=== PATIENT | male | born 1950 | race Caucasian/White ===

== ENCOUNTER 2018-03-11 15:41 | Inpatient (IN) | payer MEDICARE, MEDICAID ==
--- NOTE | 2018-03-11 15:56 | ED Physician Chart ---
ED Chief Complaint/HPI - Patient Information Date Seen:: 03/11/18 Time Seen:: 15:45 Chief Complaint:: hematemesis History of Present Illness:: Patient reportedly vomited coffee-ground material this morning. Patient would not or could not provide the color or the amount of the material he vomited but he stated it tasted like feces. Patient denies abdominal pain. Allergies:: Allergies Allergy/AdvReac Type Severity Reaction Status Date / Time MDX No Known Allergies - Nka Allergy Verified 03/03/12 17:14 [No Known Allergies - Nka] Historian:: Patient, EMS Review:: Transfer documents Reviewed ED Review of Systems - Review of Systems General/Constitutional: No fever, No chills Skin: No skin lesions Head: No headache Eyes: No loss of vision ENT: No earache Neck: No neck pain Cardio Vascular: No chest pain, No palpitations Pulmonary: No SOB GI: Vomiting, Hematemesis G/U: No dysuria, No hematuria Musculoskeletal: No bone or joint pain, No back pain, No muscle pain Hematopoietic: No bruising Allergic/Immuno: No urticaria Neurological: No syncope, Focal symptoms ED Past Medical History - Past Medical History Past Medical History: DM, CVA/TIA, Dyslipidemia, Arthritis, Other (hemiplegia with left-sided paralysis; atrial fibrillation; dysphagia; hyperlipidemia; gastritis) Family History: Other (unavailable) Social History: Care Facility Surgical History: PEG/GTube Psychiatricy History: None Medication: Reviewed Family Medical History - Family Member Mother History Unknown: Yes ED Physical Exam - Physical Examination Other Gen/Cons comments:: Chronically ill-appearing; intermittently resists physical exam Head: Atraumatic Eyes: Lids, conjuctiva normal, PERRL Skin: Nl inspection, No rash, No skin lesions, No ecchymosis ENMT: External ears, nose nl, TM canals nl Other ENMT comments:: 3.5 out of 4 poor dental hygiene Neck: No JVD Respiratory: Nl effort/Exclusion, Clear to Auscultation Other Cardio Vascular comments:: Heart sounds faint; pulse is regular GI: No tenderness/rebounding/guarding, No organomegaly, No hernia, Normal BS's, Nondistended Other Extremities comments:: Paralysis left arm Other Neuro/Psych comments:: Paralysis of left arm and 2 out of 4 drooping left side of mouth Misc: No paraspinal tenderness ED Labs/Radiology/EKG Results - Lab Results Results: Abnormal Lab Results 03/11/18 03/11/18 03/11/18 17:55 17:55 17:55 WBC 21.1 H* D RBC 4.38 Hgb 14.3 Hct 41.5 MCV 94.8 MCH 32.6 H MCHC Differential 34.4 RDW 13.6 Plt Count 365 MPV 7.8 Add Manual Diff YES Band Neutrophils % 0 Neutrophils (Manual) 77 Lymphocytes 19 L Monocytes 4 Eosinophils 0 Basophils 0 Platelet Estimate ADEQUATE Platelet Morphology NORMAL Anisocytosis 1+ RBC Morph Micro Appear NORMAL PT 11.3 INR 1.09 PTT (Actin FS) 30.6 Sodium 132 L Potassium 5.8 H Chloride 97 L Carbon Dioxide 25.7 Anion Gap 15.1 BUN 61 H Creatinine 2.1 H Est GFR ( Amer) 40.6 Est GFR (Non-Af Amer) 33.5 BUN/Creatinine Ratio 29.0 Glucose 105 Whole Bld Lactic Acid Calcium 10.0 03/11/18 17:55 WBC RBC Hgb Hct MCV MCH MCHC Differential RDW Plt Count MPV Add Manual Diff Band Neutrophils % Neutrophils (Manual) Lymphocytes Monocytes Eosinophils Basophils Platelet Estimate Platelet Morphology Anisocytosis RBC Morph Micro Appear PT INR PTT (Actin FS) Sodium Potassium Chloride Carbon Dioxide Anion Gap BUN Creatinine Est GFR ( Amer) Est GFR (Non-Af Amer) BUN/Creatinine Ratio Glucose Whole Bld Lactic Acid 2.10 H* Calcium - Radiology Results Results: Chest x-ray showed no acute disease - EKG Interpretations Rate & Rhythm: normal sinus rhythm with a rate of 64 Erin: normal Comments:: Anterior T-wave changes ED Assessment - Assessment General Assessment: The reason for the patient's leukocytosis may be stress related to his dehydration; patient is uncooperative to provide a urine for urinalysis ED Septic Shock - . Is Septic Shock (SBP<90, OR Lactate>4 mmol\L) present?: No ED Reassessment (Disposition) - Reassessment Reassessment Condition:: Unchanged - Diagnosis Diagnosis:: Leukocytosis; hyperkalemia; dehydration - Patient Disposition Admitted to:: Telemetry Spoke to:: Demond Auguste Admitting Medical Physician:: Demond Auguste Condition at Disposition:: Stable, Improved
[2018-03-11] MEDS ORDERED: Haloperidol Lactate 5 mg/mL 1mL Vial ONE (17:12)
[2018-03-11] MEDS ORDERED: Haloperidol Lactate 5 mg/mL 1mL Vial IVP ONE (17:31)
[2018-03-11] MEDS ORDERED: Sodium Chloride 0.9% 1,000 ML IV ONE ×2 (17:54→19:59)
[2018-03-11 18:04] LABS: BASOPHILE ABSOLUTE 0.1 Th/cumm (0-0.2); HEMATOCRIT 41.5 % (41.0-60); HEMOGLOBIN 14.3 gm/dL (12-16); LYMPHOCYTE ABSOLUTE 3.2 Th/cmm (1.5-3.0); MEAN CELL VOLUME 94.8 fl (80-99); MEAN CORPUSCULAR HEMOGLOBIN 32.6 pg (27.0-31.0); MEAN CORPUSCULAR HGB CONC 34.4 pg (28.0-36.0); MEAN PLATELET VOLUME 7.8 fl; MONOCYTE ABSOLUTE 2.2 Th/cmm (0.3-1.0); NEUTROPHILE ABSOLUTE 15.6 Th/cmm (1.8-8.0); PLATELET COUNT 365 Th/cmm (150-400); RED BLOOD COUNT 4.38 Mil/cmm (3.80-5.80); RED CELL DISTRIBUTION WIDTH 13.6 % (11.5-20.0)
[2018-03-11 18:10] LABS: WHITE BLOOD COUNT 21.1 Th/cmm (4.8-10.8)
[2018-03-11 18:14] LABS: INR 1.09 (0.5-1.4); PROTHROMBIN TIME (TEST) 11.3 SECONDS (9.5-11.5)
[2018-03-11 18:17] LABS: ANION GAP 15.1 (7.0-16.0); CARBON DIOXIDE 25.7 mEq/L (21.0-31.0); CREATININE - SERUM 2.1 mg/dL (0.7-1.3); GFR AFRICAN-AMERICAN 40.6 ml/min (>90); GFR NON AFRICAN-AMERICAN 33.5 ml/min; POTASSIUM SERUM 5.8 mEq/L (3.5-5.1)
[2018-03-11 18:36] LABS: NEUTROPHILS 77 % (40-80)
[2018-03-11 18:37] LABS: ANISOCYTOSIS 1+; BAND NEUTROPHILE 0 % (0-10); BASOPHIL 0 % (0-3); EOSINOPHIL 0 % (0-5); LYMPHOCYTE 19 % (20-50); MONOCYTE 4 % (2-10); PLATELET ESTIMATE ADEQUATE (NORMAL); PLATELET MORPHOLOGY NORMAL (NORMAL)
[2018-03-11] MEDS ORDERED: Hydrocodone/APAP 10 mg/325 mg Tab GT PRN (19:04)
[2018-03-11] MEDS ORDERED: POLYETHYLENE GLYCOL 3350 17 GM PACK PO PRN (19:04)
[2018-03-11 21:49] VITALS: BP 97/45
[2018-03-11] MEDS: D5-0.9%NS 1,000 ML IV SCH (22:09)
[2018-03-11] MEDS: INSULIN ASPART, RECOMBINANT 100 UNITS/ML SUBQ SCH (22:17)
[2018-03-11] MEDS ORDERED: Piperacillin Sodium/Tazobact 3.375 gm Vial IV ONE (22:20)
[2018-03-12] MEDS ORDERED: Piperacillin Sodium/Tazobact 3.375 gm Vial IV ONE (04:37)
[2018-03-12] MEDS: Albuterol Nebulizer 2.5mg/3mL HHN SCH ×4 (06:46→18:41)
[2018-03-12] MEDS: Ipratropium Neb 0.5 mg/2.5 mL UD HHN SCH ×4 (06:46→18:41)
[2018-03-12] MEDS: INSULIN ASPART, RECOMBINANT 100 UNITS/ML SUBQ SCH ×4 (06:57→20:35)
--- NOTE | 2018-03-12 08:18 | Diagnostic Imaging Report ---
Portable chest x-ray HISTORY: Shortness of breath Heart size difficult to assess with portable technique and a poor inspiration. Atherosclerotic calcification seen in the aorta. No acute focal pulmonary processes. IMPRESSION: 1. No acute focal pulmonary processes 2. Atherosclerotic vascular changes
[2018-03-12] MEDS ORDERED: Pantoprazole 40 mg EC Tab PO SCH (09:00)
[2018-03-12] MEDS ORDERED: Influenza Vaccine (65 yr & older) 0.5 ml Syr IM ONE (10:00)
[2018-03-12] MEDS ORDERED: Pneumococcal Vaccine 0.5 mL Vial IM ONE (10:00)
[2018-03-12] MEDS ORDERED: VTE Chemical Prophylaxis Screen/Admission MC PRN (10:18)
[2018-03-12] MEDS ORDERED: Probiotic Screen MC PRN (11:41)
--- NOTE | 2018-03-12 12:08 | Internal Medicine Prog Note ---
Internal Medicine Subjective - Subjective Service Date: 03/12/18 ([id number] hn) Internal Medicine Objective - Results Result Diagrams: 03/11/18 17:55 03/11/18 17:55 Recent Labs: Laboratory Last Values WBC 21.1 Th/cmm (4.8-10.8) H* D 03/11/18 17:55 RBC 4.38 Mil/cmm (3.80-5.80) 03/11/18 17:55 Hgb 14.3 gm/dL (12-16) 03/11/18 17:55 Hct 41.5 % (41.0-60) 03/11/18 17:55 MCV 94.8 fl (80-99) 03/11/18 17:55 MCH 32.6 pg (27.0-31.0) H 03/11/18 17:55 MCHC Differential 34.4 pg (28.0-36.0) 03/11/18 17:55 RDW 13.6 % (11.5-20.0) 03/11/18 17:55 Plt Count 365 Th/cmm (150-400) 03/11/18 17:55 MPV 7.8 fl 03/11/18 17:55 Add Manual Diff YES 03/11/18 17:55 Band Neutrophils % 0 % (0-10) 03/11/18 17:55 Neutrophils (Manual) 77 % (40-80) 03/11/18 17:55 Lymphocytes 19 % (20-50) L 03/11/18 17:55 Monocytes 4 % (2-10) 03/11/18 17:55 Eosinophils 0 % (0-5) 03/11/18 17:55 Basophils 0 % (0-3) 03/11/18 17:55 Platelet Estimate ADEQUATE (NORMAL) 03/11/18 17:55 Platelet Morphology NORMAL (NORMAL) 03/11/18 17:55 Anisocytosis 1+ 03/11/18 17:55 RBC Morph Micro Appear NORMAL (NORMAL) 03/11/18 17:55 PT 11.3 SECONDS (9.5-11.5) 03/11/18 17:55 INR 1.09 (0.5-1.4) 03/11/18 17:55 PTT (Actin FS) 30.6 SECONDS (26.0-38.0) 03/11/18 17:55 Sodium 132 mEq/L (136-145) L 03/11/18 17:55 Potassium 5.8 mEq/L (3.5-5.1) H 03/11/18 17:55 Chloride 97 mEq/L (98-107) L 03/11/18 17:55 Carbon Dioxide 25.7 mEq/L (21.0-31.0) 03/11/18 17:55 Anion Gap 15.1 (7.0-16.0) 03/11/18 17:55 BUN 61 mg/dL (7-25) H 03/11/18 17:55 Creatinine 2.1 mg/dL (0.7-1.3) H 03/11/18 17:55 Est GFR ( Amer) 40.6 ml/min (>90) 03/11/18 17:55 Est GFR (Non-Af Amer) 33.5 ml/min 03/11/18 17:55 BUN/Creatinine Ratio 29.0 03/11/18 17:55 Glucose 105 mg/dL (70-105) 03/11/18 17:55 POC Glucose 103 MG/DL (70 - 105) 03/12/18 06:47 Whole Bld Lactic Acid 0.83 mmol/L (0.60-1.99) 03/11/18 21:30 Calcium 10.0 mg/dL (8.6-10.3) 03/11/18 17:55 - Physical Exam Vitals and I&O: Vital Signs Temp 97.6 F 03/12/18 11:02 Pulse 71 03/12/18 11:02 Resp 18 03/12/18 11:02 BP 120/76 03/12/18 11:02 Pulse Ox 98 03/12/18 11:02 Intake & Output 03/11/18 03/12/18 03/12/18 18:59 06:59 18:59 Intake Total 2150 Balance 2150 Weight (lbs) 220 lb 168 lb 9 oz Intake: Intake, IV Amount 2150 D5-0.9%Ns 1,000 ml @ 100 1000 mls/hr IV .Q10H [facility] Rx#: [id number] Piperacillin Sodium/ 150 Tazobact 3.375 gm In Sodium Chloride 0.9% 50 ml @ 100 mls/hr IV Q8HR [facility] Rx#:[id number] Sodium Chloride 0.9% 1, 1000 000 ml @ Wide Open IV . Q0M ONE Rx#:[id number] Other: # Voids 2 # Bowel Movements 2 Stool Characteristics Soft Soft Formed Formed Weight Source Estimated Bedscale Active Medications: Current Medications Acetaminophen (Tylenol) 650 mg PO Q4H PRN PRN Reason: Mild Pain Or Fever above 101 Stop: 05/10/18 19:05 Acetaminophen/Hydrocodone Bitart ([place] 10 Mg/325 Mg) 1 tab GT Q6H PRN PRN Reason: Moderate to Severe Pain Stop: 05/10/18 19:03 Albuterol Sulfate (Albuterol 2.5mg/3ml Neb Ud) 2.5 mg HHN QIDRT [facility] Stop: 05/11/18 06:59 Last Admin: 03/12/18 10:46 Dose: 2.5 mg Ascorbic Acid (Vitamin C) 500 mg GT DAILY [facility] Stop: 05/11/18 08:59 Last Admin: 03/12/18 09:34 Dose: Not Given Calamine/Phenol (Calmoseptine) 1 appl TP QSHIFT [facility] Stop: 05/10/18 19:59 Dextrose/Sodium Chloride (D5-0.9%Ns) 1,000 mls @ 100 mls/hr IV .Q10H [facility] Stop: 05/10/18 19:14 Last Admin: 03/11/18 22:09 Dose: 100 mls/hr Piperacillin Sod/Tazobactam (Sod 3.375 gm/ Sodium Chloride) 50 mls @ 100 mls/ hr IV Q8HR [facility] Stop: 05/10/18 21:59 Last Admin: 03/12/18 04:51 Dose: 100 mls/hr Insulin Aspart (Novolog) 0 units SUBQ ACHS [facility]; Protocol Stop: 05/10/18 20:59 Last Admin: 03/12/18 11:54 Dose: Not Given Ipratropium [place] (Atrovent Neb 0.5mg/2.5ml) 0.5 mg HHN QIDRT [facility] Stop: 05/11/18 06:59 Last Admin: 03/12/18 10:46 Dose: 0.5 mg Lactobacillus Rhamnosus (Culturelle 15b) 1 each PO DAILY [facility] Stop: 05/12/18 08:59 Memantine (Namenda) 5 mg GT BID [facility] Stop: 05/11/18 08:59 Last Admin: 03/12/18 09:34 Dose: Not Given Miscellaneous (Vte Chemical Prophylaxis Screen/ Admission) 1 ea MC PRN PRN PRN Reason: PROTOCOL Stop: 05/11/18 10:17 Miscellaneous (Probiotic Screen) 1 ea MC PRN PRN PRN Reason: PROTOCOL Stop: 05/11/18 11:40 Ondansetron HCl (Zofran) 4 mg IV Q8H PRN PRN Reason: Nausea / Vomiting Stop: 05/10/18 19:05 Pantoprazole Sodium (Protonix) 40 mg PO BID [facility] Stop: 05/11/18 08:59 Last Admin: 03/12/18 09:34 Dose: Not Given Polyethylene Glycol (Miralax) 17 gm PO DAILY PRN PRN Reason: Constipation Stop: 05/10/18 19:03 - Procedures Procedures: Procedures Procedure Code Date EGD BIOPSY SINGLE/MULTIPLE 69513 12/27/[address] GASTROSTOMY TUBE 49395 01/20/14 EGD REMOVE FOREIGN BODY 18058 01/20/14 ESOPHAGOGASTRODUODENOSCOPY [EGD] W/CLOSED BIOPSY 45.16 12/27/12 PERCUTANEOUS [ENDOSCOPIC] GASTROSTOMY [PEG] 43.11 01/20/14 REMOV INTRALUM GASTR FB 98.03 01/20/14
[2018-03-12 15:54] LABS: ANION GAP 17.3 (7.0-16.0); BUN - UREA NITROGEN 39 mg/dL (7-25); CALCIUM SERUM 9.1 mg/dL (8.6-10.3); CARBON DIOXIDE 15.5 mEq/L (21.0-31.0); CHLORIDE 107 mEq/L (98-107); CREATININE - SERUM 1.1 mg/dL (0.7-1.3); GFR AFRICAN-AMERICAN > 60.0 ml/min (>90); GFR NON AFRICAN-AMERICAN > 60.0 ml/min; GLUCOSE 157 mg/dL (70-105); POTASSIUM SERUM 4.8 mEq/L (3.5-5.1); SODIUM SERUM 135 mEq/L (136-145)
--- NOTE | 2018-03-12 16:49 | Consultation ---
DATE OF CONSULTATION: 03/12/2018 REQUESTING PHYSICIAN: Dr. Auguste. REASON FOR CONSULTATION: Concern for GI bleed. Thank you for asking me to see this patient in consultation. HISTORY OF PRESENT ILLNESS: This is a 67-year-old male with psychiatric comorbidity, who presents with reported coffee-ground material earlier yesterday. The patient states that he could not provide the color of the amount of the material, but stated that it tasted like feces. The patient has apparently a G-tube from previous hospitalizations. The patient was not able to provide history on this. His hemoglobin has been stable. REVIEW OF SYSTEMS: Unable to provide given the current patient's state and agitation. PAST MEDICAL HISTORY: Diabetes, CVA, dyslipidemia, hemiplegia, and left-sided paralysis. FAMILY HISTORY: Noncontributory. SOCIAL HISTORY: He lives in a care facility. He has a history of G-tube placement. No tobacco, no alcohol, no drugs. MEDICATIONS: Have been reviewed. PHYSICAL EXAMINATION: VITAL SIGNS: Noted. GENERAL: He is speaking and somewhat somnolent, in no apparent distress. HEENT: Normocephalic, atraumatic. PERRLA, positive. LUNGS: Clear bilaterally. No wheezes, rales, or rhonchi. ABDOMEN: Soft, nontender, bowel sounds are positive. EXTREMITIES: Show no lower extremity edema. PSYCHOLOGIC: Alert and oriented x 2. NEUROLOGIC: Unable to assess. LABORATORY DATA: White count of 21,000, hemoglobin of 14.3, INR of 1.09. Sodium 132, potassium 5.8, lactic acid of 2.1. ASSESSMENT AND PLAN: This is a 67-year-old male with history of G-tube and history of cerebrovascular accident in the past, who presents with one episode of coffee-ground emesis. 1. Hematemesis. 2. Concern for upper gastrointestinal bleed. 3. Probable erosive esophagitis versus peptic ulcer disease. We would recommend conservative treatment for now. Aspirate off the G-tube to see if there is any evidence of ongoing blood. Start him on IV PPI twice a day and okay to start G-tube feedings for now given stability and hemodynamic stability. If patient has recurrent bouts of hematemesis or hemodynamic instability associated with a GI bleed, we would recommend an urgent EGD. We will continue to follow the patient alongside with you. Thank you for this consultation. JOB# [id number]
[2018-03-12] MEDS: Menthol/Zinc Oxide Oint 113gm Tube TP SCH ×2 (17:38→20:34)
--- NOTE | 2018-03-12 19:42 | History & Physical ---
ADMIT DATE: 03/12/2018 CHIEF COMPLAINT: Coffee-ground emesis. HISTORY OF PRESENT ILLNESS: This is a 67-year-old male who is a longterm resident, admitted to the telemetry unit due to 1-day history of coffee-ground emesis. The patient was also noted with abdominal distention at the longterm. The patient also stated that his vomit tasted like feces. The patient did not have any fevers at the longterm. PAST MEDICAL HISTORY: Diabetes, CVA, dyslipidemia, arthritis, hemiplegia with left-sided weakness, AFib, dysphagia, hyperlipidemia, and gastritis. FAMILY HISTORY: Noncontributory. SOCIAL HISTORY: The patient is a longterm resident, requiring 24-hour nursing care. PAST SURGICAL HISTORY: PEG. FAMILY HISTORY: Noncontributory. REVIEW OF SYSTEMS: GENERAL: Denies any fevers and chills. CARDIOVASCULAR: Denies chest pain. RESPIRATORY: Denies shortness of breath. GASTROINTESTINAL: Denies any nausea, vomiting, or any abdominal pain at this time. GENITOURINARY: Denies any dysuria. All other systems are reviewed and negative. PHYSICAL EXAMINATION: GENERAL: Elderly male. Awake, alert, agitated. No apparent distress. VITAL SIGNS: Temperature 97.6, heart rate 71, blood pressure 120/76, respiration 18, O2 98%. HEENT: Head; normocephalic, atraumatic. NECK: Supple. No mass. LUNGS: Clear bilaterally. HEART: Regular rhythm. No murmurs, no gallops. ABDOMEN: Mildly distended. EXTREMITIES: No trace of edema noted. SKIN: The patient has DTI at sacral area. LABORATORY DATA: WBC 21.1, H and H 14.3 and 41.5, platelet of 365. Sodium 132, potassium 5.8, chloride 97, BUN 61, creatinine 2.1. Whole lactic acid 2.10. DIAGNOSTICS: The patient had a chest x-ray done, impression is no acute focal pulmonary processes, atherosclerotic vascular changes. ASSESSMENT: Gastrointestinal bleed, lactic acidosis, rule out sepsis, acute renal insufficiency secondary to severe dehydration, diabetes, 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 PLAN: The patient will be admitted to the telemetry unit. We will get psychiatry consultation as well as GI, also get wound care consultation. Keep the patient on aggressive IV fluids for hydration. Monitor BUN and creatinine closely. Keep patient on empiric IV antibiotics, monitor H and H, IV Protonix to continue, followup labs for tomorrow morning. We will continue to monitor this patient. JOB# [id number]
[2018-03-12] MEDS: D5-0.9%NS 1,000 ML IV SCH (20:38)
[2018-03-13] MEDS: Albuterol Nebulizer 2.5mg/3mL HHN SCH ×4 (07:21→19:29)
[2018-03-13] MEDS: Ipratropium Neb 0.5 mg/2.5 mL UD HHN SCH ×3 (07:21→15:50)
[2018-03-13] MEDS: INSULIN ASPART, RECOMBINANT 100 UNITS/ML SUBQ SCH ×4 (07:34→21:18)
[2018-03-13] MEDS: D5-0.9%NS 1,000 ML IV SCH ×2 (07:47→20:34)
[2018-03-13] MEDS: Lactobacillus Rhamnosus GG 15 Billion CFU CAP.SPRINK PO SCH (08:25)
[2018-03-13] MEDS: Menthol/Zinc Oxide Oint 113gm Tube TP SCH ×3 (08:40→21:21)
--- NOTE | 2018-03-13 12:35 | Internal Medicine Prog Note ---
Internal Medicine Subjective - Subjective Service Date: 03/13/18 Patient seen and examined:: with staff Patient is:: awake, verbal Per staff patient has:: tolerating meds Internal Medicine Objective - Results Result Diagrams: 03/11/18 17:55 03/12/18 13:10 Recent Labs: Laboratory Last Values WBC 21.1 Th/cmm (4.8-10.8) H* D 03/11/18 17:55 RBC 4.38 Mil/cmm (3.80-5.80) 03/11/18 17:55 Hgb 14.3 gm/dL (12-16) 03/11/18 17:55 Hct 41.5 % (41.0-60) 03/11/18 17:55 MCV 94.8 fl (80-99) 03/11/18 17:55 MCH 32.6 pg (27.0-31.0) H 03/11/18 17:55 MCHC Differential 34.4 pg (28.0-36.0) 03/11/18 17:55 RDW 13.6 % (11.5-20.0) 03/11/18 17:55 Plt Count 365 Th/cmm (150-400) 03/11/18 17:55 MPV 7.8 fl 03/11/18 17:55 Add Manual Diff YES 03/11/18 17:55 Band Neutrophils % 0 % (0-10) 03/11/18 17:55 Neutrophils (Manual) 77 % (40-80) 03/11/18 17:55 Lymphocytes 19 % (20-50) L 03/11/18 17:55 Monocytes 4 % (2-10) 03/11/18 17:55 Eosinophils 0 % (0-5) 03/11/18 17:55 Basophils 0 % (0-3) 03/11/18 17:55 Platelet Estimate ADEQUATE (NORMAL) 03/11/18 17:55 Platelet Morphology NORMAL (NORMAL) 03/11/18 17:55 Anisocytosis 1+ 03/11/18 17:55 RBC Morph Micro Appear NORMAL (NORMAL) 03/11/18 17:55 PT 11.3 SECONDS (9.5-11.5) 03/11/18 17:55 INR 1.09 (0.5-1.4) 03/11/18 17:55 PTT (Actin FS) 30.6 SECONDS (26.0-38.0) 03/11/18 17:55 Sodium 135 mEq/L (136-145) L 03/12/18 13:10 Potassium 4.8 mEq/L (3.5-5.1) 03/12/18 13:10 Chloride 107 mEq/L (98-107) 03/12/18 13:10 Carbon Dioxide 15.5 mEq/L (21.0-31.0) L 03/12/18 13:10 Anion Gap 17.3 (7.0-16.0) H 03/12/18 13:10 BUN 39 mg/dL (7-25) H 03/12/18 13:10 Creatinine 1.1 mg/dL (0.7-1.3) 03/12/18 13:10 Est GFR ( Amer) > 60.0 ml/min (>90) 03/12/18 13:10 Est GFR (Non-Af Amer) > 60.0 ml/min 03/12/18 13:10 BUN/Creatinine Ratio 35.5 03/12/18 13:10 Glucose 157 mg/dL (70-105) H 03/12/18 13:10 POC Glucose 147 MG/DL (70 - 105) H 03/13/18 12:24 Whole Bld Lactic Acid 0.83 mmol/L (0.60-1.99) 03/11/18 21:30 Calcium 9.1 mg/dL (8.6-10.3) 03/12/18 13:10 - Physical Exam Vitals and I&O: Vital Signs Temp 98.4 F 03/13/18 08:40 Pulse 63 03/13/18 08:40 Resp 18 03/13/18 11:31 BP 115/46 03/13/18 08:40 Pulse Ox 96 03/13/18 08:40 Intake & Output 03/12/18 03/13/18 03/13/18 18:59 06:59 18:59 Intake Total 1050 1460 Balance 1050 1460 Weight (lbs) 168 lb 9 oz 168 lb 9.6 oz Intake: Intake, IV Amount 1050 1050 D5-0.9%Ns 1,000 ml @ 100 1000 1000 mls/hr IV .Q10H [facility] Rx#: [id number] Piperacillin Sodium/ 50 50 Tazobact 3.375 gm In Sodium Chloride 0.9% 50 ml @ 100 mls/hr IV Q8HR [facility] Rx#:[id number] Tube Feeding 310 Other 100 Other: # Voids 4 2 # Bowel Movements 2 1 Stool Characteristics Soft Soft Soft Formed Formed Formed Weight Source Estimated Bedscale Active Medications: Current Medications Acetaminophen (Tylenol) 650 mg PO Q4H PRN PRN Reason: Mild Pain Or Fever above 101 Stop: 05/10/18 19:05 Acetaminophen/Hydrocodone Bitart ([place] 10 Mg/325 Mg) 1 tab GT Q6H PRN PRN Reason: Moderate to Severe Pain Stop: 05/10/18 19:03 Albuterol Sulfate (Albuterol 2.5mg/3ml Neb Ud) 2.5 mg HHN QIDRT [facility] Stop: 05/11/18 06:59 Last Admin: 03/13/18 07:21 Dose: 2.5 mg Ascorbic Acid (Vitamin C) 500 mg GT DAILY [facility] Stop: 05/11/18 08:59 Last Admin: 03/13/18 08:25 Dose: 500 mg Calamine/Phenol (Calmoseptine) 1 appl TP QSHIFT [facility] Stop: 05/10/18 19:59 Last Admin: 03/13/18 08:40 Dose: 1 appl Dextrose/Sodium Chloride (D5-0.9%Ns) 1,000 mls @ 100 mls/hr IV .Q10H [facility] Stop: 05/10/18 19:14 Last Admin: 03/13/18 07:47 Dose: 100 mls/hr Piperacillin Sod/Tazobactam (Sod 3.375 gm/ Sodium Chloride) 50 mls @ 100 mls/ hr IV Q8HR [facility] Stop: 05/10/18 21:59 Last Admin: 03/13/18 05:03 Dose: 100 mls/hr Insulin Aspart (Novolog) 0 units SUBQ ACHS [facility]; Protocol Stop: 05/10/18 20:59 Last Admin: 03/13/18 12:28 Dose: Not Given Ipratropium [place] (Atrovent Neb 0.5mg/2.5ml) 0.5 mg HHN QIDRT [facility] Stop: 05/11/18 06:59 Last Admin: 03/13/18 07:21 Dose: 0.5 mg Lactobacillus Rhamnosus (Culturelle 15b) 1 each PO DAILY [facility] Stop: 05/12/18 08:59 Last Admin: 03/13/18 08:25 Dose: 1 each Memantine (Namenda) 5 mg GT BID [facility] Stop: 05/11/18 08:59 Last Admin: 03/13/18 08:25 Dose: 5 mg Miscellaneous (Vte Chemical Prophylaxis Screen/ Admission) 1 ea PRN PRN PRN Reason: PROTOCOL Stop: 05/11/18 10:17 Miscellaneous (Probiotic Screen) 1 ea PRN PRN PRN Reason: PROTOCOL Stop: 05/11/18 11:40 Mupirocin (Bactroban Oint) 1 appl NS BID [facility] Stop: 03/18/18 09:01 Ondansetron HCl (Zofran) 4 mg IV Q8H PRN PRN Reason: Nausea / Vomiting Stop: 05/10/18 19:05 Pantoprazole Sodium (Protonix) 40 mg IVP Q12HR [facility] Stop: 05/11/18 20:59 Last Admin: 03/13/18 08:25 Dose: 40 mg Polyethylene Glycol (Miralax) 17 gm PO DAILY PRN PRN Reason: Constipation Stop: 05/10/18 19:03 General: weak, alert HEENT: NC/AT, PERRLA Neck: Supple Lungs: CTAB Cardiovascular: RRR, Normal S1, Normal S2, without murmur Abdomen: soft, non-tender, non-distended, positive bowel sound Extremities: excoriation Neurological: alert - Procedures Procedures: Procedures Procedure Code Date EGD BIOPSY SINGLE/MULTIPLE 97110 12/27/[address] GASTROSTOMY TUBE 66062 01/20/14 EGD REMOVE FOREIGN BODY 68272 01/20/14 ESOPHAGOGASTRODUODENOSCOPY [EGD] W/CLOSED BIOPSY 45.16 12/27/12 PERCUTANEOUS [ENDOSCOPIC] GASTROSTOMY [PEG] 43.11 01/20/14 REMOV INTRALUM GASTR FB 98.03 01/20/14 Internal Medicine Assmt/Plan - Assessment Assessment: Gastrointestinal bleed, lactic acidosis, rule out sepsis, acute renal insufficiency secondary to severe dehydration, diabetes, 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 . - Plan Plan: continue iv protonix follow up labs in am monitor h/h closely aspiration precautions will add bactroban for mrsa nares continue current plan of care Nutritional Asmnt/Malnutr-PDOC - Dietary Evaluation Malnutrition Findings (Please click <Entered> for more info): Nutritional Asmnt/Malnutrition Start: 03/12/18 14: 52 Text: Status: Complete Freq: Protocol: Document 03/12/18 14:52 MICHAEL (Rec: 03/12/18 15:28 MICHAEL [id number]) Nutritional Asmnt/Malnutrition Patient General Information Nutritional Screening High Risk Diagnosis GI bleeding, sepsis Pertinent Medical Hx/Surgical Hx DM, CVA/TIA, dyslipidemia, arthritis, hemiplegia w/ left sided paralysis, atrial fibrillation, dysphagia, hyperlipidemia, gastritis Subjective Information Received diet consult for tube feeding. Pt's TF regimen was isosource 1.5 @ 75cc/hr x 18 hrs, on at 2 pm and off at 8 am, from SNF. RN notified by RD that isosource 1.5 is not available, but Jevity 1.2 is available as a similar formulary. Pertinent Medications Vit C, D5-0.9%Ns, novolog, culturelle, zofran, protonix, piperacillin, miralax Pertinent Labs 03/11: Na 132, K 5.8, Cl 97, BUN 61, Cr 2.1 Nutritional Hx/Data Height 6 ft Height (Calculated Centimeters) 182.9 Current Weight (lbs) 168 lb 9 oz Weight (Calculated Kilograms) 76.5 Weight (Calculated Grams) 13395.7 [place] Body Weight 178 lb Body Mass Index (BMI) 22.8 Weight Status Approriate GI Symptoms GI Symptoms None Last BM 03/12 x 2 Food Allergies No Skin Integrity/Comment: jovan 16 pressure ulcer to right sacral area Estimated Nutritional Goals BEE in Kcals: Using Current wt Calories/Kcals/Kg 27-32 Kcals Calculated 9102-8063 Protein: Using Current wt Protein g/k.2 Protein Calculated 92 g Fluid: ml 6168-0693 (1 ml/kcal) Nutritional Problem 2. Problem Problem increased nutrition needs ( kcal and protien) Etiology increased metabolic demand for impaired skin integrity Signs/Symptoms: pressure ulcer 1. Problem Problem Altered nutrition related lab values Etiology fluid/electrolyte imbalance Signs/Symptoms: Na 132, K 5.8, Cl 97, BUN 61, Cr 2.1 Malnutrition Alert Is there a minimum of two criteria No selected? Query Text:Check all the applicable criteria. A minimum of two criteria are recommended for diagnosis of either severe or non-severe malnutrition. Malnutrition Related to Morbid Obesity Malnutrition related to morbid obesity No Intervention/Recommendation Comments 1. Recommend to start TF w/ Jevity 1.2 @ 25 ml/hr and increase rate by 10 ml q 6 hrs until goal rate of 75 ml/hr continuous is reached 2. Goal rate will provide 2160 kcals, 100 g protein, and 1453 ml free water; meeting 100% of nutritional needs 3. Monitor TF rate, tolerance, wt, skin integrity and labs 4. F/U as high risk in 2-3 days, 03/14-03/15 Expected Outcomes/Goals Expected Outcomes/Goals 1. Pt to meet at least 75% of nutritional needs via nutrition support with tolerance 2. Wt stability, skin to remain intact, labs to approach WNL. Reviewed by Melly Mancera RD
--- NOTE | 2018-03-13 14:05 | Consultation ---
DATE OF CONSULTATION: 03/13/2018 PSYCHIATRIC CONSULTATION Staff was spoken to. The patient is interviewed. The patient has been admitted over here for hematemesis and the patient is being currently worked up. Psychiatric consultation is called to address the issue of psychosis. PHYSICIAN REQUESTING CONSULTATION: Demond Auguste D.O. REASON FOR CONSULTATION: Agitation. HISTORY OF PRESENT ILLNESS: This patient is a 67-year-old resident of a [facility] facility. Information is obtained by directly interviewing the patient as well as talking to the staff members. The patient at this time has been mentioning that he is tired and that he cannot talk. The patient was admitted to the telemetry because of the coffee-ground emesis. The patient has been very dysphoric at this time. The patient is reported to have been getting easily agitated and frustrated. The patient also has been reported to have been feeling depressed. PAST PSYCHIATRIC HISTORY: Details are not known. MEDICAL HISTORY: The patient has multiple medical problems, including diabetes, CVA, dyslipidemia, hemiplegia with left-sided weakness, and hyperlipidemia. The patient at this time is being currently worked up for coffee-colored vomitus. The patient during the interview has been getting easily frustrated and is stating that he is so tired, he cannot talk much. SUBSTANCE ABUSE HISTORY: The patient denies use of any drugs or alcohol. SOCIAL HISTORY: The patient is a resident of [facility] facility. MENTAL STATUS EXAMINATION: The patient is 67 years old, looking his stated age, superficially cooperative. Eye contact is poor. Mood is noted to be irritable. Affect is constricted. The patient is frustrated. The patient has been stating that he cannot deal with it any longer. Coping skills are noted to be very poor. The patient has been consulted by the GI for hematemesis. The patient at this time is not providing much of information; however, the patient is not presenting with any threats to harm self or others but the patient is getting easily agitated. The patient is alert and oriented to time, place and person. DIAGNOSTIC IMPRESSION: Depressive disorder, not otherwise specified. PLAN: To continue the patient with supportive therapy and follow the patient tomorrow to get more information. Thank you, Dr. Auguste for allowing me to participate in the care of the patient. JOB# [id number]
--- NOTE | 2018-03-13 19:54 | GI Progress Note ---
Subjective - Review of Systems Service Date: 03/13/18 Events since last encounter: No major events Objective - Results Result Diagrams: 03/11/18 17:55 03/12/18 13:10 Recent Labs: Laboratory Last Values WBC 21.1 Th/cmm (4.8-10.8) H* D 03/11/18 17:55 RBC 4.38 Mil/cmm (3.80-5.80) 03/11/18 17:55 Hgb 14.3 gm/dL (12-16) 03/11/18 17:55 Hct 41.5 % (41.0-60) 03/11/18 17:55 MCV 94.8 fl (80-99) 03/11/18 17:55 MCH 32.6 pg (27.0-31.0) H 03/11/18 17:55 MCHC Differential 34.4 pg (28.0-36.0) 03/11/18 17:55 RDW 13.6 % (11.5-20.0) 03/11/18 17:55 Plt Count 365 Th/cmm (150-400) 03/11/18 17:55 MPV 7.8 fl 03/11/18 17:55 Add Manual Diff YES 03/11/18 17:55 Band Neutrophils % 0 % (0-10) 03/11/18 17:55 Neutrophils (Manual) 77 % (40-80) 03/11/18 17:55 Lymphocytes 19 % (20-50) L 03/11/18 17:55 Monocytes 4 % (2-10) 03/11/18 17:55 Eosinophils 0 % (0-5) 03/11/18 17:55 Basophils 0 % (0-3) 03/11/18 17:55 Platelet Estimate ADEQUATE (NORMAL) 03/11/18 17:55 Platelet Morphology NORMAL (NORMAL) 03/11/18 17:55 Anisocytosis 1+ 03/11/18 17:55 RBC Morph Micro Appear NORMAL (NORMAL) 03/11/18 17:55 PT 11.3 SECONDS (9.5-11.5) 03/11/18 17:55 INR 1.09 (0.5-1.4) 03/11/18 17:55 PTT (Actin FS) 30.6 SECONDS (26.0-38.0) 03/11/18 17:55 Sodium 135 mEq/L (136-145) L 03/12/18 13:10 Potassium 4.8 mEq/L (3.5-5.1) 03/12/18 13:10 Chloride 107 mEq/L (98-107) 03/12/18 13:10 Carbon Dioxide 15.5 mEq/L (21.0-31.0) L 03/12/18 13:10 Anion Gap 17.3 (7.0-16.0) H 03/12/18 13:10 BUN 39 mg/dL (7-25) H 03/12/18 13:10 Creatinine 1.1 mg/dL (0.7-1.3) 03/12/18 13:10 Est GFR ( Amer) > 60.0 ml/min (>90) 03/12/18 13:10 Est GFR (Non-Af Amer) > 60.0 ml/min 03/12/18 13:10 BUN/Creatinine Ratio 35.5 03/12/18 13:10 Glucose 157 mg/dL (70-105) H 03/12/18 13:10 POC Glucose 147 MG/DL (70 - 105) H 03/13/18 16:39 Whole Bld Lactic Acid 0.83 mmol/L (0.60-1.99) 03/11/18 21:30 Calcium 9.1 mg/dL (8.6-10.3) 03/12/18 13:10 - Physical Exam Vitals and I&O: Vital Signs Temp 98.1 F 03/13/18 16:17 Pulse 70 03/13/18 16:17 Resp 24 03/13/18 19:30 BP 126/50 03/13/18 16:17 Pulse Ox 98 03/13/18 16:17 Intake & Output 03/13/18 03/13/18 03/14/18 06:59 18:59 05:59 Intake Total 1510 500 Balance 1510 500 Weight (lbs) 76.476 kg 76.476 kg Intake: Intake, IV Amount 1100 D5-0.9%Ns 1,000 ml @ 100 1000 mls/hr IV .Q10H [facility] Rx#: [id number] Piperacillin Sodium/ 100 Tazobact 3.375 gm In Sodium Chloride 0.9% 50 ml @ 100 mls/hr IV Q8HR [facility] Rx#:[id number] Oral 0 Tube Feeding 310 400 Other 100 100 Other: # Voids 2 3 # Bowel Movements 1 1 Stool Characteristics Soft Soft Formed Formed Weight Source Bedscale Bedscale Active Medications: Current Medications Acetaminophen (Tylenol) 650 mg PO Q4H PRN PRN Reason: Mild Pain Or Fever above 101 Stop: 05/10/18 19:05 Acetaminophen/Hydrocodone Bitart ([place] 10 Mg/325 Mg) 1 tab GT Q6H PRN PRN Reason: Moderate to Severe Pain Stop: 05/10/18 19:03 Albuterol Sulfate (Albuterol 2.5mg/3ml Neb Ud) 2.5 mg HHN QIDRT [facility] Stop: 05/11/18 06:59 Last Admin: 03/13/18 19:29 Dose: Not Given Ascorbic Acid (Vitamin C) 500 mg GT DAILY [facility] Stop: 05/11/18 08:59 Last Admin: 03/13/18 08:25 Dose: 500 mg Calamine/Phenol (Calmoseptine) 1 appl TP QSHIFT [facility] Stop: 05/10/18 19:59 Last Admin: 03/13/18 08:40 Dose: 1 appl Dextrose/Sodium Chloride (D5-0.9%Ns) 1,000 mls @ 100 mls/hr IV .Q10H [facility] Stop: 05/10/18 19:14 Last Admin: 03/13/18 07:47 Dose: 100 mls/hr Piperacillin Sod/Tazobactam (Sod 3.375 gm/ Sodium Chloride) 50 mls @ 100 mls/ hr IV Q8HR [facility] Stop: 05/10/18 21:59 Last Admin: 03/13/18 12:49 Dose: 100 mls/hr Insulin Aspart (Novolog) 0 units SUBQ ACHS [facility]; Protocol Stop: 05/10/18 20:59 Last Admin: 03/13/18 16:48 Dose: Not Given Ipratropium [place] (Atrovent Neb 0.5mg/2.5ml) 0.5 mg HHN QIDRT [facility] Stop: 05/11/18 06:59 Last Admin: 03/13/18 15:50 Dose: Not Given Lactobacillus Rhamnosus (Culturelle 15b) 1 each PO DAILY [facility] Stop: 05/12/18 08:59 Last Admin: 03/13/18 08:25 Dose: 1 each Lorazepam (Ativan) 1 mg IVP Q6HR PRN; Protocol PRN Reason: Agitation Stop: 05/12/18 13:53 Memantine (Namenda) 5 mg GT BID [facility] Stop: 05/11/18 08:59 Last Admin: 03/13/18 16:28 Dose: 5 mg Miscellaneous (Vte Chemical Prophylaxis Screen/ Admission) 1 ea PRN PRN PRN Reason: PROTOCOL Stop: 05/11/18 10:17 Miscellaneous (Probiotic Screen) 1 ea PRN PRN PRN Reason: PROTOCOL Stop: 05/11/18 11:40 Mupirocin (Bactroban Oint) 1 appl NS BID [facility] Stop: 03/18/18 09:01 Last Admin: 03/13/18 16:28 Dose: 1 appl Ondansetron HCl (Zofran) 4 mg IV Q8H PRN PRN Reason: Nausea / Vomiting Stop: 05/10/18 19:05 Pantoprazole Sodium (Protonix) 40 mg IVP Q12HR [facility] Stop: 05/11/18 20:59 Last Admin: 03/13/18 08:25 Dose: 40 mg Polyethylene Glycol (Miralax) 17 gm PO DAILY PRN PRN Reason: Constipation Stop: 05/10/18 19:03 General: Alert, Cooperative HEENT: Atraumatic Neck: Supple Cardiovascular: Regular rate, Normal S2 Lungs: Clear to auscultation Abdomen: Bowel sounds Neurological: Normal gait - Procedures Procedures: Procedures Procedure Code Date EGD BIOPSY SINGLE/MULTIPLE 62893 12/27/[address] GASTROSTOMY TUBE 16312 01/20/14 EGD REMOVE FOREIGN BODY 39670 01/20/14 ESOPHAGOGASTRODUODENOSCOPY [EGD] W/CLOSED BIOPSY 45.16 12/27/12 PERCUTANEOUS [ENDOSCOPIC] GASTROSTOMY [PEG] 43.11 01/20/14 REMOV INTRALUM GASTR FB 98.03 01/20/14 Assessment/Plan - Problem List Patient Problems: All Active Problems COFFEE GROUND-LIKE EMESIS (Acute) - Assessment Assessment: 1. Hematemesis 2. Probable erosive esophagitis vs other 3. Psychiatric history -Would recommend conservative mangement at this time -Will likely need an EGD at some point for further evaluation if patient can follow up -Check CBC tomorrow, if ongoing anemia, would prefer performing EGD as inpatient -Will follow
[2018-03-14] MEDS: D5-0.9%NS 1,000 ML IV SCH ×2 (05:15→15:39)
[2018-03-14] MEDS: INSULIN ASPART, RECOMBINANT 100 UNITS/ML SUBQ SCH ×4 (06:36→20:37)
[2018-03-14] MEDS: Albuterol Nebulizer 2.5mg/3mL HHN SCH ×4 (06:54→18:41)
[2018-03-14] MEDS: Ipratropium Neb 0.5 mg/2.5 mL UD HHN SCH ×4 (06:54→18:58)
--- NOTE | 2018-03-14 08:28 | GI Progress Note ---
Subjective - Review of Systems Service Date: 03/14/18 Events since last encounter: No events, Objective - Results Result Diagrams: 03/11/18 17:55 03/12/18 13:10 Recent Labs: Laboratory Last Values WBC 21.1 Th/cmm (4.8-10.8) H* D 03/11/18 17:55 RBC 4.38 Mil/cmm (3.80-5.80) 03/11/18 17:55 Hgb 14.3 gm/dL (12-16) 03/11/18 17:55 Hct 41.5 % (41.0-60) 03/11/18 17:55 MCV 94.8 fl (80-99) 03/11/18 17:55 MCH 32.6 pg (27.0-31.0) H 03/11/18 17:55 MCHC Differential 34.4 pg (28.0-36.0) 03/11/18 17:55 RDW 13.6 % (11.5-20.0) 03/11/18 17:55 Plt Count 365 Th/cmm (150-400) 03/11/18 17:55 MPV 7.8 fl 03/11/18 17:55 Add Manual Diff YES 03/11/18 17:55 Band Neutrophils % 0 % (0-10) 03/11/18 17:55 Neutrophils (Manual) 77 % (40-80) 03/11/18 17:55 Lymphocytes 19 % (20-50) L 03/11/18 17:55 Monocytes 4 % (2-10) 03/11/18 17:55 Eosinophils 0 % (0-5) 03/11/18 17:55 Basophils 0 % (0-3) 03/11/18 17:55 Platelet Estimate ADEQUATE (NORMAL) 03/11/18 17:55 Platelet Morphology NORMAL (NORMAL) 03/11/18 17:55 Anisocytosis 1+ 03/11/18 17:55 RBC Morph Micro Appear NORMAL (NORMAL) 03/11/18 17:55 PT 11.3 SECONDS (9.5-11.5) 03/11/18 17:55 INR 1.09 (0.5-1.4) 03/11/18 17:55 PTT (Actin FS) 30.6 SECONDS (26.0-38.0) 03/11/18 17:55 Sodium 135 mEq/L (136-145) L 03/12/18 13:10 Potassium 4.8 mEq/L (3.5-5.1) 03/12/18 13:10 Chloride 107 mEq/L (98-107) 03/12/18 13:10 Carbon Dioxide 15.5 mEq/L (21.0-31.0) L 03/12/18 13:10 Anion Gap 17.3 (7.0-16.0) H 03/12/18 13:10 BUN 39 mg/dL (7-25) H 03/12/18 13:10 Creatinine 1.1 mg/dL (0.7-1.3) 03/12/18 13:10 Est GFR ( Amer) > 60.0 ml/min (>90) 03/12/18 13:10 Est GFR (Non-Af Amer) > 60.0 ml/min 03/12/18 13:10 BUN/Creatinine Ratio 35.5 03/12/18 13:10 Glucose 157 mg/dL (70-105) H 03/12/18 13:10 POC Glucose 147 MG/DL (70 - 105) H 03/13/18 16:39 Whole Bld Lactic Acid 0.83 mmol/L (0.60-1.99) 03/11/18 21:30 Calcium 9.1 mg/dL (8.6-10.3) 03/12/18 13:10 - Physical Exam Vitals and I&O: Vital Signs Temp 98.6 F 03/14/18 07:36 Pulse 64 03/14/18 07:36 Resp 18 03/14/18 07:52 BP 147/58 03/14/18 07:36 Pulse Ox 98 03/14/18 07:36 Intake & Output 03/13/18 03/14/18 03/14/18 19:59 06:59 18:59 Intake Total Balance Weight (lbs) Intake: Intake, IV Amount D5-0.9%Ns 1,000 ml @ 100 mls/hr IV .Q10H [facility] Rx#: [id number] Piperacillin Sodium/ Tazobact 3.375 gm In Sodium Chloride 0.9% 50 ml @ 100 mls/hr IV Q8HR [facility] Rx#:[id number] Oral Tube Feeding Other Other: # Voids # Bowel Movements Stool Characteristics Soft Liquid Green Weight Source Active Medications: Current Medications Acetaminophen (Tylenol) 650 mg PO Q4H PRN PRN Reason: Mild Pain Or Fever above 101 Stop: 05/10/18 19:05 Acetaminophen/Hydrocodone Bitart ([place] 10 Mg/325 Mg) 1 tab GT Q6H PRN PRN Reason: Moderate to Severe Pain Stop: 05/10/18 19:03 Albuterol Sulfate (Albuterol 2.5mg/3ml Neb Ud) 2.5 mg HHN QIDRT [facility] Stop: 05/11/18 06:59 Last Admin: 03/14/18 06:54 Dose: 2.5 mg Ascorbic Acid (Vitamin C) 500 mg GT DAILY [facility] Stop: 05/11/18 08:59 Last Admin: 03/13/18 08:25 Dose: 500 mg Calamine/Phenol (Calmoseptine) 1 appl TP QSHIFT [facility] Stop: 05/10/18 19:59 Last Admin: 03/13/18 21:21 Dose: 1 appl Dextrose/Sodium Chloride (D5-0.9%Ns) 1,000 mls @ 100 mls/hr IV .Q10H [facility] Stop: 05/10/18 19:14 Last Admin: 03/14/18 05:15 Dose: 100 mls/hr Piperacillin Sod/Tazobactam (Sod 3.375 gm/ Sodium Chloride) 50 mls @ 100 mls/ hr IV Q8HR [facility] Stop: 05/10/18 21:59 Last Admin: 03/14/18 05:14 Dose: 100 mls/hr Insulin Aspart (Novolog) 0 units SUBQ ACHS [facility]; Protocol Stop: 05/10/18 20:59 Last Admin: 03/14/18 06:36 Dose: Not Given Ipratropium [place] (Atrovent Neb 0.5mg/2.5ml) 0.5 mg HHN QIDRT [facility] Stop: 05/11/18 06:59 Last Admin: 03/14/18 06:54 Dose: 0.5 mg Lactobacillus Rhamnosus (Culturelle 15b) 1 each PO DAILY [facility] Stop: 05/12/18 08:59 Last Admin: 03/13/18 08:25 Dose: 1 each Lorazepam (Ativan) 1 mg IVP Q6HR PRN; Protocol PRN Reason: Agitation Stop: 05/12/18 13:53 Last Admin: 03/13/18 22:01 Dose: 1 mg Memantine (Namenda) 5 mg GT BID [facility] Stop: 05/11/18 08:59 Last Admin: 03/13/18 16:28 Dose: 5 mg Miscellaneous (Vte Chemical Prophylaxis Screen/ Admission) 1 ea PRN PRN PRN Reason: PROTOCOL Stop: 05/11/18 10:17 Miscellaneous (Probiotic Screen) 1 ea MC PRN PRN PRN Reason: PROTOCOL Stop: 05/11/18 11:40 Mupirocin (Bactroban Oint) 1 appl NS BID [facility] Stop: 03/18/18 09:01 Last Admin: 03/13/18 16:28 Dose: 1 appl Ondansetron HCl (Zofran) 4 mg IV Q8H PRN PRN Reason: Nausea / Vomiting Stop: 05/10/18 19:05 Pantoprazole Sodium (Protonix) 40 mg IVP Q12HR [facility] Stop: 05/11/18 20:59 Last Admin: 03/13/18 20:58 Dose: 40 mg Polyethylene Glycol (Miralax) 17 gm PO DAILY PRN PRN Reason: Constipation Stop: 05/10/18 19:03 General: Alert, Cooperative HEENT: Atraumatic Neck: Supple Cardiovascular: Regular rate, Normal S2 Lungs: Clear to auscultation Abdomen: Bowel sounds Neurological: Normal gait - Procedures Procedures: Procedures Procedure Code Date EGD BIOPSY SINGLE/MULTIPLE 27327 12/27/[address] GASTROSTOMY TUBE 35255 01/20/14 EGD REMOVE FOREIGN BODY 66953 01/20/14 ESOPHAGOGASTRODUODENOSCOPY [EGD] W/CLOSED BIOPSY 45.16 12/27/12 PERCUTANEOUS [ENDOSCOPIC] GASTROSTOMY [PEG] 43.11 01/20/14 REMOV INTRALUM GASTR FB 98.03 01/20/14 Assessment/Plan - Problem List Patient Problems: All Active Problems COFFEE GROUND-LIKE EMESIS (Acute) - Assessment Assessment: 1. Hematemesis 2. Probable erosive esophagitis vs other 3. Psychiatric history -Would recommend conservative mangement at this time -Will likely need an EGD at some point for further evaluation if patient can follow up -Await CBC results, further recs to follow Thank you for allowing us to partcipate in the patients care
[2018-03-14] MEDS: Lactobacillus Rhamnosus GG 15 Billion CFU CAP.SPRINK PO SCH (08:59)
[2018-03-14] MEDS: Menthol/Zinc Oxide Oint 113gm Tube TP SCH (08:59)
[2018-03-14 09:10] LABS: ANION GAP 12.8 (7.0-16.0); BUN - UREA NITROGEN 12 mg/dL (7-25); CALCIUM SERUM 9.2 mg/dL (8.6-10.3); CARBON DIOXIDE 27.4 mEq/L (21.0-31.0); CHLORIDE 107 mEq/L (98-107); CREATININE - SERUM 0.8 mg/dL (0.7-1.3); GFR AFRICAN-AMERICAN > 60.0 ml/min (>90); GFR NON AFRICAN-AMERICAN > 60.0 ml/min; GLUCOSE 182 mg/dL (70-105); POTASSIUM SERUM 5.2 mEq/L (3.5-5.1); SODIUM SERUM 142 mEq/L (136-145)
[2018-03-14 09:47] LABS: HEMATOCRIT 36.2 % (41.0-60); HEMOGLOBIN 12.4 gm/dL (12-16); MEAN CORPUSCULAR HEMOGLOBIN 32.4 pg (27.0-31.0); MEAN CORPUSCULAR HGB CONC 34.1 pg (28.0-36.0); MEAN PLATELET VOLUME 8.3 fl; PLATELET COUNT 320 Th/cmm (150-400); RED BLOOD COUNT 3.81 Mil/cmm (3.80-5.80); RED CELL DISTRIBUTION WIDTH 12.8 % (11.5-20.0); WHITE BLOOD COUNT 8.7 Th/cmm (4.8-10.8)
[2018-03-14 10:13] LABS: ANISOCYTOSIS 1+; BAND NEUTROPHILE 1 % (0-10); BASOPHIL 0 % (0-3); EOSINOPHIL 0 % (0-5); LYMPHOCYTE 30 % (20-50); MONOCYTE 8 % (2-10); NEUTROPHILS 61 % (40-80); PLATELET ESTIMATE ADEQUATE (NORMAL)
--- NOTE | 2018-03-14 15:04 | Internal Medicine Prog Note ---
Internal Medicine Subjective - Subjective Service Date: 03/14/18 (patient refuses lab draw) Patient is:: awake, verbal Per staff patient has:: tolerating meds, refusing labs Internal Medicine Objective - Results Result Diagrams: 03/14/18 08:50 03/14/18 08:50 Recent Labs: Laboratory Last Values WBC 8.7 Th/cmm (4.8-10.8) 03/14/18 08:50 RBC 3.81 Mil/cmm (3.80-5.80) 03/14/18 08:50 Hgb 12.4 gm/dL (12-16) 03/14/18 08:50 Hct 36.2 % (41.0-60) L 03/14/18 08:50 MCV 95.0 fl (80-99) 03/14/18 08:50 MCH 32.4 pg (27.0-31.0) H 03/14/18 08:50 MCHC Differential 34.1 pg (28.0-36.0) 03/14/18 08:50 RDW 12.8 % (11.5-20.0) 03/14/18 08:50 Plt Count 320 Th/cmm (150-400) 03/14/18 08:50 MPV 8.3 fl 03/14/18 08:50 Add Manual Diff YES 03/14/18 08:50 Band Neutrophils % 1 % (0-10) 03/14/18 08:50 Neutrophils (Manual) 61 % (40-80) 03/14/18 08:50 Lymphocytes 30 % (20-50) 03/14/18 08:50 Monocytes 8 % (2-10) 03/14/18 08:50 Eosinophils 0 % (0-5) 03/14/18 08:50 Basophils 0 % (0-3) 03/14/18 08:50 Platelet Estimate ADEQUATE (NORMAL) 03/14/18 08:50 Platelet Morphology NORMAL (NORMAL) 03/11/18 17:55 Anisocytosis 1+ 03/14/18 08:50 RBC Morph Micro Appear NORMAL (NORMAL) 03/11/18 17:55 PT 11.3 SECONDS (9.5-11.5) 03/11/18 17:55 INR 1.09 (0.5-1.4) 03/11/18 17:55 PTT (Actin FS) 30.6 SECONDS (26.0-38.0) 03/11/18 17:55 Sodium 142 mEq/L (136-145) 03/14/18 08:50 Potassium 5.2 mEq/L (3.5-5.1) H 03/14/18 08:50 Chloride 107 mEq/L (98-107) 03/14/18 08:50 Carbon Dioxide 27.4 mEq/L (21.0-31.0) 03/14/18 08:50 Anion Gap 12.8 (7.0-16.0) 03/14/18 08:50 BUN 12 mg/dL (7-25) 03/14/18 08:50 Creatinine 0.8 mg/dL (0.7-1.3) 03/14/18 08:50 Est GFR ( Amer) > 60.0 ml/min (>90) 03/14/18 08:50 Est GFR (Non-Af Amer) > 60.0 ml/min 03/14/18 08:50 BUN/Creatinine Ratio 15.0 03/14/18 08:50 Glucose 182 mg/dL (70-105) H 03/14/18 08:50 POC Glucose 184 MG/DL (70 - 105) H 03/14/18 11:33 Whole Bld Lactic Acid 0.83 mmol/L (0.60-1.99) 03/11/18 21:30 Calcium 9.2 mg/dL (8.6-10.3) 03/14/18 08:50 - Physical Exam Vitals and I&O: Vital Signs Temp 98.1 F 03/14/18 11:26 Pulse 82 03/14/18 14:48 Resp 18 03/14/18 14:48 BP 131/64 03/14/18 11:26 Pulse Ox 95 03/14/18 14:48 Intake & Output 03/13/18 03/14/18 03/14/18 19:59 06:59 18:59 Intake Total Balance Weight (lbs) Intake: Intake, IV Amount D5-0.9%Ns 1,000 ml @ 100 mls/hr IV .Q10H [facility] Rx#: [id number] Piperacillin Sodium/ Tazobact 3.375 gm In Sodium Chloride 0.9% 50 ml @ 100 mls/hr IV Q8HR [facility] Rx#:[id number] Oral Tube Feeding Other Other: # Voids # Bowel Movements Stool Characteristics Soft Liquid Green Weight Source Active Medications: Current Medications Acetaminophen (Tylenol) 650 mg PO Q4H PRN PRN Reason: Mild Pain Or Fever above 101 Stop: 05/10/18 19:05 Acetaminophen/Hydrocodone Bitart ([place] 10 Mg/325 Mg) 1 tab GT Q6H PRN PRN Reason: Moderate to Severe Pain Stop: 05/10/18 19:03 Albuterol Sulfate (Albuterol 2.5mg/3ml Neb Ud) 2.5 mg HHN QIDRT [facility] Stop: 05/11/18 06:59 Last Admin: 03/14/18 14:38 Dose: 2.5 mg Ascorbic Acid (Vitamin C) 500 mg GT DAILY [facility] Stop: 05/11/18 08:59 Last Admin: 03/14/18 08:59 Dose: 500 mg Calamine/Phenol (Calmoseptine) 1 appl TP QSHIFT [facility] Stop: 05/10/18 19:59 Last Admin: 03/14/18 08:59 Dose: 1 appl Dextrose/Sodium Chloride (D5-0.9%Ns) 1,000 mls @ 100 mls/hr IV .Q10H [facility] Stop: 05/10/18 19:14 Last Admin: 03/14/18 05:15 Dose: 100 mls/hr Piperacillin Sod/Tazobactam (Sod 3.375 gm/ Sodium Chloride) 50 mls @ 100 mls/ hr IV Q8HR [facility] Stop: 05/10/18 21:59 Last Admin: 03/14/18 13:27 Dose: 100 mls/hr Insulin Aspart (Novolog) 0 units SUBQ ACHS [facility]; Protocol Stop: 05/10/18 20:59 Last Admin: 03/14/18 11:56 Dose: Not Given Ipratropium [place] (Atrovent Neb 0.5mg/2.5ml) 0.5 mg HHN QIDRT [facility] Stop: 05/11/18 06:59 Last Admin: 03/14/18 14:39 Dose: 0.5 mg Lactobacillus Rhamnosus (Culturelle 15b) 1 each PO DAILY [facility] Stop: 05/12/18 08:59 Last Admin: 03/14/18 08:59 Dose: 1 each Lorazepam (Ativan) 1 mg IVP Q6HR PRN; Protocol PRN Reason: Agitation Stop: 05/12/18 13:53 Last Admin: 03/13/18 22:01 Dose: 1 mg Memantine (Namenda) 5 mg GT BID [facility] Stop: 05/11/18 08:59 Last Admin: 03/14/18 08:59 Dose: 5 mg Miscellaneous (Vte Chemical Prophylaxis Screen/ Admission) 1 ea PRN PRN PRN Reason: PROTOCOL Stop: 05/11/18 10:17 Miscellaneous (Probiotic Screen) 1 ea PRN PRN PRN Reason: PROTOCOL Stop: 05/11/18 11:40 Mupirocin (Bactroban Oint) 1 appl NS BID [facility] Stop: 03/18/18 09:01 Last Admin: 03/14/18 08:59 Dose: 1 appl Ondansetron HCl (Zofran) 4 mg IV Q8H PRN PRN Reason: Nausea / Vomiting Stop: 05/10/18 19:05 Pantoprazole Sodium (Protonix) 40 mg IVP Q12HR [facility] Stop: 05/11/18 20:59 Last Admin: 03/14/18 08:59 Dose: 40 mg Polyethylene Glycol (Miralax) 17 gm PO DAILY PRN PRN Reason: Constipation Stop: 05/10/18 19:03 General: weak, alert HEENT: NC/AT, PERRLA Neck: Supple Lungs: CTAB Cardiovascular: RRR, Normal S1, Normal S2, without murmur Abdomen: soft, non-tender, non-distended, positive bowel sound Extremities: excoriation Neurological: alert - Procedures Procedures: Procedures Procedure Code Date EGD BIOPSY SINGLE/MULTIPLE 68419 12/27/[address] GASTROSTOMY TUBE 83406 01/20/14 EGD REMOVE FOREIGN BODY 12410 01/20/14 ESOPHAGOGASTRODUODENOSCOPY [EGD] W/CLOSED BIOPSY 45.16 12/27/12 PERCUTANEOUS [ENDOSCOPIC] GASTROSTOMY [PEG] 43.11 01/20/14 REMOV INTRALUM GASTR FB 98.03 01/20/14 Internal Medicine Assmt/Plan - Assessment Assessment: Gastrointestinal bleed, lactic acidosis, rule out sepsis, acute renal insufficiency secondary to severe dehydration, diabetes, 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 . - Plan Plan: continue iv protonix dc planning in am monitor h/h closely aspiration precautions will add bactroban for mrsa nares continue current plan of care Nutritional Asmnt/Malnutr-PDOC - Dietary Evaluation Malnutrition Findings (Please click <Entered> for more info): Nutritional Asmnt/Malnutrition Start: 03/12/18 14: 52 Text: Status: Complete Freq: Protocol: Document 03/12/18 14:52 MICHAEL (Rec: 03/12/18 15:28 CHELEMORGAN [id number]) Nutritional Asmnt/Malnutrition Patient General Information Nutritional Screening High Risk Diagnosis GI bleeding, sepsis Pertinent Medical Hx/Surgical Hx DM, CVA/TIA, dyslipidemia, arthritis, hemiplegia w/ left sided paralysis, atrial fibrillation, dysphagia, hyperlipidemia, gastritis Subjective Information Received diet consult for tube feeding. Pt's TF regimen was isosource 1.5 @ 75cc/hr x 18 hrs, on at 2 pm and off at 8 am, from SNF. RN notified by RD that isosource 1.5 is not available, but Jevity 1.2 is available as a similar formulary. Pertinent Medications Vit C, D5-0.9%Ns, novolog, culturelle, zofran, protonix, piperacillin, miralax Pertinent Labs 03/11: Na 132, K 5.8, Cl 97, BUN 61, Cr 2.1 Nutritional Hx/Data Height 6 ft Height (Calculated Centimeters) 182.9 Current Weight (lbs) 168 lb 9 oz Weight (Calculated Kilograms) 76.5 Weight (Calculated Grams) 77076.7 [place] Body Weight 178 lb Body Mass Index (BMI) 22.8 Weight Status Approriate GI Symptoms GI Symptoms None Last BM 03/12 x 2 Food Allergies No Skin Integrity/Comment: jovan 16 pressure ulcer to right sacral area Estimated Nutritional Goals BEE in Kcals: Using Current wt Calories/Kcals/Kg 27-32 Kcals Calculated 7105-8800 Protein: Using Current wt Protein g/k.2 Protein Calculated 92 g Fluid: ml 2735-7472 (1 ml/kcal) Nutritional Problem 2. Problem Problem increased nutrition needs ( kcal and protien) Etiology increased metabolic demand for impaired skin integrity Signs/Symptoms: pressure ulcer 1. Problem Problem Altered nutrition related lab values Etiology fluid/electrolyte imbalance Signs/Symptoms: Na 132, K 5.8, Cl 97, BUN 61, Cr 2.1 Malnutrition Alert Is there a minimum of two criteria No selected? Query Text:Check all the applicable criteria. A minimum of two criteria are recommended for diagnosis of either severe or non-severe malnutrition. Malnutrition Related to Morbid Obesity Malnutrition related to morbid obesity No Intervention/Recommendation Comments 1. Recommend to start TF w/ Jevity 1.2 @ 25 ml/hr and increase rate by 10 ml q 6 hrs until goal rate of 75 ml/hr continuous is reached 2. Goal rate will provide 2160 kcals, 100 g protein, and 1453 ml free water; meeting 100% of nutritional needs 3. Monitor TF rate, tolerance, wt, skin integrity and labs 4. F/U as high risk in 2-3 days, 03/14-03/15 Expected Outcomes/Goals Expected Outcomes/Goals 1. Pt to meet at least 75% of nutritional needs via nutrition support with tolerance 2. Wt stability, skin to remain intact, labs to approach WNL. Reviewed by Melly Mancera RD
--- NOTE | 2018-03-15 02:54 | Progress Notes ---
DATE: 03/14/2018 SUBJECTIVE: Staff was spoken to. The patient is interviewed. Mood is noted to be irritable. Affect is constricted. The patient is getting easily irritable and frustrated. Coping skills are noted to be very poor. The patient is being currently worked up. No side effects to the medications are noted. The patient has been having difficult time to cope with the stress. The patient has no insight into his illness. The patient tends to snap the staff members and the patient is being medicated with Ativan as needed. ASSESSMENT: The patient is still impulsive. PLAN: To continue the patient with the supportive therapy, encouraged the patient to verbalize the concerns rather than to act out. JOB# [id number]
[2018-03-15] MEDS: D5-0.9%NS 1,000 ML IV SCH ×2 (04:20→16:46)
[2018-03-15] MEDS: Menthol/Zinc Oxide Oint 113gm Tube TP SCH ×2 (04:32→08:21)
[2018-03-15] MEDS: INSULIN ASPART, RECOMBINANT 100 UNITS/ML SUBQ SCH ×3 (06:55→16:35)
[2018-03-15] MEDS: Albuterol Nebulizer 2.5mg/3mL HHN SCH ×3 (07:14→18:56)
[2018-03-15] MEDS: Ipratropium Neb 0.5 mg/2.5 mL UD HHN SCH ×4 (07:14→18:56)
[2018-03-15] MEDS: Lactobacillus Rhamnosus GG 15 Billion CFU CAP.SPRINK PO SCH (08:22)
--- NOTE | 2018-03-15 12:02 | GI Progress Note ---
Subjective - Review of Systems Service Date: 03/15/18 Events since last encounter: No events, patient states I am doing great! Objective - Results Result Diagrams: 03/14/18 08:50 03/14/18 08:50 Recent Labs: Laboratory Last Values WBC 8.7 Th/cmm (4.8-10.8) 03/14/18 08:50 RBC 3.81 Mil/cmm (3.80-5.80) 03/14/18 08:50 Hgb 12.4 gm/dL (12-16) 03/14/18 08:50 Hct 36.2 % (41.0-60) L 03/14/18 08:50 MCV 95.0 fl (80-99) 03/14/18 08:50 MCH 32.4 pg (27.0-31.0) H 03/14/18 08:50 MCHC Differential 34.1 pg (28.0-36.0) 03/14/18 08:50 RDW 12.8 % (11.5-20.0) 03/14/18 08:50 Plt Count 320 Th/cmm (150-400) 03/14/18 08:50 MPV 8.3 fl 03/14/18 08:50 Add Manual Diff YES 03/14/18 08:50 Band Neutrophils % 1 % (0-10) 03/14/18 08:50 Neutrophils (Manual) 61 % (40-80) 03/14/18 08:50 Lymphocytes 30 % (20-50) 03/14/18 08:50 Monocytes 8 % (2-10) 03/14/18 08:50 Eosinophils 0 % (0-5) 03/14/18 08:50 Basophils 0 % (0-3) 03/14/18 08:50 Platelet Estimate ADEQUATE (NORMAL) 03/14/18 08:50 Platelet Morphology NORMAL (NORMAL) 03/11/18 17:55 Anisocytosis 1+ 03/14/18 08:50 RBC Morph Micro Appear NORMAL (NORMAL) 03/11/18 17:55 PT 11.3 SECONDS (9.5-11.5) 03/11/18 17:55 INR 1.09 (0.5-1.4) 03/11/18 17:55 PTT (Actin FS) 30.6 SECONDS (26.0-38.0) 03/11/18 17:55 Sodium 142 mEq/L (136-145) 03/14/18 08:50 Potassium 5.2 mEq/L (3.5-5.1) H 03/14/18 08:50 Chloride 107 mEq/L (98-107) 03/14/18 08:50 Carbon Dioxide 27.4 mEq/L (21.0-31.0) 03/14/18 08:50 Anion Gap 12.8 (7.0-16.0) 03/14/18 08:50 BUN 12 mg/dL (7-25) 03/14/18 08:50 Creatinine 0.8 mg/dL (0.7-1.3) 03/14/18 08:50 Est GFR ( Amer) > 60.0 ml/min (>90) 03/14/18 08:50 Est GFR (Non-Af Amer) > 60.0 ml/min 03/14/18 08:50 BUN/Creatinine Ratio 15.0 03/14/18 08:50 Glucose 182 mg/dL (70-105) H 03/14/18 08:50 POC Glucose 150 MG/DL (70 - 105) H 03/15/18 11:12 Whole Bld Lactic Acid 0.83 mmol/L (0.60-1.99) 03/11/18 21:30 Calcium 9.2 mg/dL (8.6-10.3) 03/14/18 08:50 - Physical Exam Vitals and I&O: Vital Signs Temp 96.9 F 03/15/18 07:47 Pulse 65 03/15/18 11:07 Resp 18 03/15/18 11:07 BP 131/76 03/15/18 07:47 Pulse Ox 92 03/15/18 11:07 Intake & Output 03/14/18 03/15/18 03/15/18 18:59 06:59 18:59 Intake Total 20241.667 Balance 20241.66 Weight (lbs) 76.657 kg 77.474 kg Intake: Intake, IV Amount 1050 1266.667 D5-0.9%Ns 1,000 ml @ 100 1000 1166.667 mls/hr IV .Q10H [facility] Rx#: [id number] Piperacillin Sodium/ 50 100 Tazobact 3.375 gm In Sodium Chloride 0.9% 50 ml @ 100 mls/hr IV Q8HR [facility] Rx#:[id number] Oral 0 Tube Feeding 825 825 Other 150 60 Other: # Voids 4 3 # Bowel Movements 2 Stool Characteristics Soft Soft Liquid Liquid Green Green Weight Source Bedscale Bedscale Active Medications: Current Medications Acetaminophen (Tylenol) 650 mg PO Q4H PRN PRN Reason: Mild Pain Or Fever above 101 Stop: 05/10/18 19:05 Acetaminophen/Hydrocodone Bitart ([place] 10 Mg/325 Mg) 1 tab GT Q6H PRN PRN Reason: Moderate to Severe Pain Stop: 05/10/18 19:03 Albuterol Sulfate (Albuterol 2.5mg/3ml Neb Ud) 2.5 mg HHN QIDRT [facility] Stop: 05/11/18 06:59 Last Admin: 03/15/18 10:45 Dose: 2.5 mg Ascorbic Acid (Vitamin C) 500 mg GT DAILY [facility] Stop: 05/11/18 08:59 Last Admin: 03/15/18 08:22 Dose: 500 mg Calamine/Phenol (Calmoseptine) 1 appl TP QSHIFT [facility] Stop: 05/10/18 19:59 Last Admin: 03/15/18 08:21 Dose: 1 appl Dextrose/Sodium Chloride (D5-0.9%Ns) 1,000 mls @ 100 mls/hr IV .Q10H [facility] Stop: 05/10/18 19:14 Last Infusion: 03/15/18 06:00 Dose: 100 mls/hr Piperacillin Sod/Tazobactam (Sod 3.375 gm/ Sodium Chloride) 50 mls @ 100 mls/ hr IV Q8HR [facility] Stop: 05/10/18 21:59 Last Infusion: 03/15/18 05:05 Dose: Infused Insulin Aspart (Novolog) 0 units SUBQ ACHS [facility]; Protocol Stop: 05/10/18 20:59 Last Admin: 03/15/18 06:55 Dose: Not Given Ipratropium [place] (Atrovent Neb 0.5mg/2.5ml) 0.5 mg HHN QIDRT [facility] Stop: 05/11/18 06:59 Last Admin: 03/15/18 10:45 Dose: 0.5 mg Lactobacillus Rhamnosus (Culturelle 15b) 1 each PO DAILY [facility] Stop: 05/12/18 08:59 Last Admin: 03/15/18 08:22 Dose: 1 each Lorazepam (Ativan) 1 mg IVP Q6HR PRN; Protocol PRN Reason: Agitation Stop: 05/12/18 13:53 Last Admin: 03/13/18 22:01 Dose: 1 mg Memantine (Namenda) 5 mg GT BID [facility] Stop: 05/11/18 08:59 Last Admin: 03/15/18 08:22 Dose: 5 mg Miscellaneous (Vte Chemical Prophylaxis Screen/ Admission) 1 ea MC PRN PRN PRN Reason: PROTOCOL Stop: 05/11/18 10:17 Miscellaneous (Probiotic Screen) 1 ea PRN PRN PRN Reason: PROTOCOL Stop: 05/11/18 11:40 Mupirocin (Bactroban Oint) 1 appl NS BID [facility] Stop: 03/18/18 09:01 Last Admin: 03/15/18 08:22 Dose: 1 appl Ondansetron HCl (Zofran) 4 mg IV Q8H PRN PRN Reason: Nausea / Vomiting Stop: 05/10/18 19:05 Pantoprazole Sodium (Protonix) 40 mg IVP Q12HR [facility] Stop: 05/11/18 20:59 Last Admin: 03/15/18 08:22 Dose: 40 mg Polyethylene Glycol (Miralax) 17 gm PO DAILY PRN PRN Reason: Constipation Stop: 05/10/18 19:03 General: Alert, Cooperative HEENT: Atraumatic Neck: Supple Cardiovascular: Regular rate, Normal S2 Lungs: Clear to auscultation Abdomen: Bowel sounds Neurological: Normal gait - Procedures Procedures: Procedures Procedure Code Date EGD BIOPSY SINGLE/MULTIPLE 27359 12/27/[address] GASTROSTOMY TUBE 33592 01/20/14 EGD REMOVE FOREIGN BODY 43943 01/20/14 ESOPHAGOGASTRODUODENOSCOPY [EGD] W/CLOSED BIOPSY 45.16 12/27/12 PERCUTANEOUS [ENDOSCOPIC] GASTROSTOMY [PEG] 43.11 01/20/14 REMOV INTRALUM GASTR FB 98.03 01/20/14 Assessment/Plan - Problem List Patient Problems: All Active Problems COFFEE GROUND-LIKE EMESIS (Acute) - Assessment Assessment: 1. Hematemesis 2. Probable erosive esophagitis vs other 3. Psychiatric history -Would recommend conservative mangement at this time -Will likely need an EGD at some point for further evaluation if patient can follow up -CBC normal, continue supportive care Thank you for allowing us to partcipate in the patients care
--- NOTE | 2018-03-15 13:08 | Internal Medicine Prog Note ---
Internal Medicine Subjective - Subjective Service Date: 03/15/18 Patient is:: awake, verbal Per staff patient has:: tolerating meds, refusing labs Internal Medicine Objective - Results Result Diagrams: 03/14/18 08:50 03/14/18 08:50 Recent Labs: Laboratory Last Values WBC 8.7 Th/cmm (4.8-10.8) 03/14/18 08:50 RBC 3.81 Mil/cmm (3.80-5.80) 03/14/18 08:50 Hgb 12.4 gm/dL (12-16) 03/14/18 08:50 Hct 36.2 % (41.0-60) L 03/14/18 08:50 MCV 95.0 fl (80-99) 03/14/18 08:50 MCH 32.4 pg (27.0-31.0) H 03/14/18 08:50 MCHC Differential 34.1 pg (28.0-36.0) 03/14/18 08:50 RDW 12.8 % (11.5-20.0) 03/14/18 08:50 Plt Count 320 Th/cmm (150-400) 03/14/18 08:50 MPV 8.3 fl 03/14/18 08:50 Add Manual Diff YES 03/14/18 08:50 Band Neutrophils % 1 % (0-10) 03/14/18 08:50 Neutrophils (Manual) 61 % (40-80) 03/14/18 08:50 Lymphocytes 30 % (20-50) 03/14/18 08:50 Monocytes 8 % (2-10) 03/14/18 08:50 Eosinophils 0 % (0-5) 03/14/18 08:50 Basophils 0 % (0-3) 03/14/18 08:50 Platelet Estimate ADEQUATE (NORMAL) 03/14/18 08:50 Platelet Morphology NORMAL (NORMAL) 03/11/18 17:55 Anisocytosis 1+ 03/14/18 08:50 RBC Morph Micro Appear NORMAL (NORMAL) 03/11/18 17:55 PT 11.3 SECONDS (9.5-11.5) 03/11/18 17:55 INR 1.09 (0.5-1.4) 03/11/18 17:55 PTT (Actin FS) 30.6 SECONDS (26.0-38.0) 03/11/18 17:55 Sodium 142 mEq/L (136-145) 03/14/18 08:50 Potassium 5.2 mEq/L (3.5-5.1) H 03/14/18 08:50 Chloride 107 mEq/L (98-107) 03/14/18 08:50 Carbon Dioxide 27.4 mEq/L (21.0-31.0) 03/14/18 08:50 Anion Gap 12.8 (7.0-16.0) 03/14/18 08:50 BUN 12 mg/dL (7-25) 03/14/18 08:50 Creatinine 0.8 mg/dL (0.7-1.3) 03/14/18 08:50 Est GFR ( Amer) > 60.0 ml/min (>90) 03/14/18 08:50 Est GFR (Non-Af Amer) > 60.0 ml/min 03/14/18 08:50 BUN/Creatinine Ratio 15.0 03/14/18 08:50 Glucose 182 mg/dL (70-105) H 03/14/18 08:50 POC Glucose 150 MG/DL (70 - 105) H 03/15/18 11:12 Whole Bld Lactic Acid 0.83 mmol/L (0.60-1.99) 03/11/18 21:30 Calcium 9.2 mg/dL (8.6-10.3) 03/14/18 08:50 - Physical Exam Vitals and I&O: Vital Signs Temp 97.7 F 03/15/18 12:03 Pulse 71 03/15/18 12:03 Resp 20 03/15/18 12:03 BP 146/70 03/15/18 12:03 Pulse Ox 97 03/15/18 12:03 Intake & Output 03/14/18 03/15/18 03/15/18 18:59 06:59 18:59 Intake Total 2024 2150.667 Balance 2024 2151.667 Weight (lbs) 169 lb 170 lb 12.8 oz Intake: Intake, IV Amount 1050 1266.667 D5-0.9%Ns 1,000 ml @ 100 1000 1166.667 mls/hr IV .Q10H [facility] Rx#: [id number] Piperacillin Sodium/ 50 100 Tazobact 3.375 gm In Sodium Chloride 0.9% 50 ml @ 100 mls/hr IV Q8HR [facility] Rx#:[id number] Oral 0 Tube Feeding 825 825 Other 150 60 Other: # Voids 4 3 # Bowel Movements 2 Stool Characteristics Soft Soft Liquid Liquid Green Green Weight Source Bedscale Bedscale Active Medications: Current Medications Acetaminophen (Tylenol) 650 mg PO Q4H PRN PRN Reason: Mild Pain Or Fever above 101 Stop: 05/10/18 19:05 Acetaminophen/Hydrocodone Bitart ([place] 10 Mg/325 Mg) 1 tab GT Q6H PRN PRN Reason: Moderate to Severe Pain Stop: 05/10/18 19:03 Albuterol Sulfate (Albuterol 2.5mg/3ml Neb Ud) 2.5 mg HHN QIDRT [facility] Stop: 05/11/18 06:59 Last Admin: 03/15/18 10:45 Dose: 2.5 mg Ascorbic Acid (Vitamin C) 500 mg GT DAILY [facility] Stop: 05/11/18 08:59 Last Admin: 03/15/18 08:22 Dose: 500 mg Calamine/Phenol (Calmoseptine) 1 appl TP QSHIFT [facility] Stop: 05/10/18 19:59 Last Admin: 03/15/18 08:21 Dose: 1 appl Dextrose/Sodium Chloride (D5-0.9%Ns) 1,000 mls @ 100 mls/hr IV .Q10H [facility] Stop: 05/10/18 19:14 Last Infusion: 03/15/18 06:00 Dose: 100 mls/hr Piperacillin Sod/Tazobactam (Sod 3.375 gm/ Sodium Chloride) 50 mls @ 100 mls/ hr IV Q8HR [facility] Stop: 05/10/18 21:59 Last Infusion: 03/15/18 05:05 Dose: Infused Insulin Aspart (Novolog) 0 units SUBQ ACHS [facility]; Protocol Stop: 05/10/18 20:59 Last Admin: 03/15/18 12:43 Dose: Not Given Ipratropium [place] (Atrovent Neb 0.5mg/2.5ml) 0.5 mg HHN QIDRT [facility] Stop: 05/11/18 06:59 Last Admin: 03/15/18 10:45 Dose: 0.5 mg Lactobacillus Rhamnosus (Culturelle 15b) 1 each PO DAILY [facility] Stop: 05/12/18 08:59 Last Admin: 03/15/18 08:22 Dose: 1 each Lorazepam (Ativan) 1 mg IVP Q6HR PRN; Protocol PRN Reason: Agitation Stop: 05/12/18 13:53 Last Admin: 03/13/18 22:01 Dose: 1 mg Memantine (Namenda) 5 mg GT BID [facility] Stop: 05/11/18 08:59 Last Admin: 03/15/18 08:22 Dose: 5 mg Miscellaneous (Vte Chemical Prophylaxis Screen/ Admission) 1 ea MC PRN PRN PRN Reason: PROTOCOL Stop: 05/11/18 10:17 Miscellaneous (Probiotic Screen) 1 ea MC PRN PRN PRN Reason: PROTOCOL Stop: 05/11/18 11:40 Mupirocin (Bactroban Oint) 1 appl NS BID [facility] Stop: 03/18/18 09:01 Last Admin: 03/15/18 08:22 Dose: 1 appl Ondansetron HCl (Zofran) 4 mg IV Q8H PRN PRN Reason: Nausea / Vomiting Stop: 05/10/18 19:05 Pantoprazole Sodium (Protonix) 40 mg IVP Q12HR [facility] Stop: 05/11/18 20:59 Last Admin: 03/15/18 08:22 Dose: 40 mg Polyethylene Glycol (Miralax) 17 gm PO DAILY PRN PRN Reason: Constipation Stop: 05/10/18 19:03 General: weak, alert HEENT: NC/AT, PERRLA Neck: Supple Lungs: CTAB Cardiovascular: RRR, Normal S1, Normal S2, without murmur Abdomen: soft, non-tender, non-distended, positive bowel sound Extremities: excoriation Neurological: alert - Procedures Procedures: Procedures Procedure Code Date EGD BIOPSY SINGLE/MULTIPLE 40875 12/27/[address] GASTROSTOMY TUBE 68071 01/20/14 EGD REMOVE FOREIGN BODY 95816 01/20/14 ESOPHAGOGASTRODUODENOSCOPY [EGD] W/CLOSED BIOPSY 45.16 12/27/12 PERCUTANEOUS [ENDOSCOPIC] GASTROSTOMY [PEG] 43.11 01/20/14 REMOV INTRALUM GASTR FB 98.03 01/20/14 Internal Medicine Assmt/Plan - Assessment Assessment: Gastrointestinal bleed, lactic acidosis, rule out sepsis, acute renal insufficiency secondary to severe dehydration, diabetes, 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 . - Plan Plan: continue iv protonix dc planning to LTAC monitor h/h closely aspiration precautions will add bactroban for mrsa nares continue current plan of care Nutritional Asmnt/Malnutr-PDOC - Dietary Evaluation Malnutrition Findings (Please click <Entered> for more info): Nutritional Asmnt/Malnutrition Start: 03/12/18 14: 52 Text: Status: Complete Freq: Protocol: Document 03/12/18 14:52 [place] (Rec: 03/12/18 15:28 MICHAEL [id number]) Nutritional Asmnt/Malnutrition Patient General Information Nutritional Screening High Risk Diagnosis GI bleeding, sepsis Pertinent Medical Hx/Surgical Hx DM, CVA/TIA, dyslipidemia, arthritis, hemiplegia w/ left sided paralysis, atrial fibrillation, dysphagia, hyperlipidemia, gastritis Subjective Information Received diet consult for tube feeding. Pt's TF regimen was isosource 1.5 @ 75cc/hr x 18 hrs, on at 2 pm and off at 8 am, from SNF. RN notified by RD that isosource 1.5 is not available, but Jevity 1.2 is available as a similar formulary. Pertinent Medications Vit C, D5-0.9%Ns, novolog, culturelle, zofran, protonix, piperacillin, miralax Pertinent Labs 03/11: Na 132, K 5.8, Cl 97, BUN 61, Cr 2.1 Nutritional Hx/Data Height 6 ft Height (Calculated Centimeters) 182.9 Current Weight (lbs) 168 lb 9 oz Weight (Calculated Kilograms) 76.5 Weight (Calculated Grams) 27274.7 [place] Body Weight 178 lb Body Mass Index (BMI) 22.8 Weight Status Approriate GI Symptoms GI Symptoms None Last BM 03/12 x 2 Food Allergies No Skin Integrity/Comment: jovan You pressure ulcer to right sacral area Estimated Nutritional Goals BEE in Kcals: Using Current wt Calories/Kcals/Kg 27-32 Kcals Calculated 3361-5918 Protein: Using Current wt Protein g/k.2 Protein Calculated 92 g Fluid: ml (1 ml/kcal) Nutritional Problem 2. Problem Problem increased nutrition needs ( kcal and protien) Etiology increased metabolic demand for impaired skin integrity Signs/Symptoms: pressure ulcer 1. Problem Problem Altered nutrition related lab values Etiology fluid/electrolyte imbalance Signs/Symptoms: Na 132, K 5.8, Cl 97, BUN 61, Cr 2.1 Malnutrition Alert Is there a minimum of two criteria No selected? Query Text:Check all the applicable criteria. A minimum of two criteria are recommended for diagnosis of either severe or non-severe malnutrition. Malnutrition Related to Morbid Obesity Malnutrition related to morbid obesity No Intervention/Recommendation Comments 1. Recommend to start TF w/ Jevity 1.2 @ 25 ml/hr and increase rate by 10 ml q 6 hrs until goal rate of 75 ml/hr continuous is reached 2. Goal rate will provide 2160 kcals, 100 g protein, and 1453 ml free water; meeting 100% of nutritional needs 3. Monitor TF rate, tolerance, wt, skin integrity and labs 4. F/U as high risk in 2-3 days, 03/14-03/15 Expected Outcomes/Goals Expected Outcomes/Goals 1. Pt to meet at least 75% of nutritional needs via nutrition support with tolerance 2. Wt stability, skin to remain intact, labs to approach WNL. Reviewed by Melly Mancera RD
== END 2018-03-15 08:00 | DRG 871 ==
LOC: ER 15:41 → TELE 18:30 → MSI 03-15 17:29
PROVIDERS: ADMIT Internal Medicine; ATTEND Internal Medicine
DX: A41.9 Sepsis, unspecified organism (principal); R53.2 Functional quadriplegia; K29.71 Gastritis, unspecified, with bleeding; I69.954 Hemiplegia and hemiparesis following unspecified cerebrovascular disease affecting left non-dominant side; E86.0 Dehydration; I48.91 Unspecified atrial fibrillation; E78.5 Hyperlipidemia, unspecified; F32.9 Major depressive disorder, single episode, unspecified; M19.90 Unspecified osteoarthritis, unspecified site; R13.10 Dysphagia, unspecified; E87.5 Hyperkalemia; N18.3 Chronic kidney disease, stage 3 (moderate); E11.22 Type 2 diabetes mellitus with diabetic chronic kidney disease; Z93.1 Gastrostomy status; Z91.14 Patient's other noncompliance with medication regimen
CPT/HCPCS: 36415-UA; 71045-TC; 80048-TC; 82948-90; 83036-90; 83605; 85007-TC; 85025-TC; 85610-TC; 85730-TC; 90779; 93005; 94760; 96374; C9113; J1200; J1630; J1815; J2060; J2543; J7030; J7042; J7613; Z7610